=== PATIENT | female | born 1975 | race African-American/Black ===

== ENCOUNTER 2017-03-20 13:32 | Emergency (ER) | payer MEDICAID ==
[~2017-03-20] VITALS: Ht 167.6 cm; Wt 86.0 kg
[2017-03-20] MEDS ORDERED: NORT25CA PO (13:46)
[2017-03-20] MEDS ORDERED: LOSA50TA20 PO (13:46)
[2017-03-20] MEDS ORDERED: LAM1 PO (13:46)
[2017-03-20] MEDS ORDERED: CHLO25TA27 GT (13:46)
[2017-03-20] MEDS ORDERED: METO-539 PO (13:46)
[2017-03-20] MEDS ORDERED: FAMO40TA7 PO (13:46)
[2017-03-20] MEDS ORDERED: ATOR40TA70 PO (13:46)
[2017-03-20] MEDS ORDERED: BACL-141 PO (13:46)
[2017-03-20] MEDS ORDERED: LEVE500T19 PO (13:46)
[2017-03-20] MEDS ORDERED: ONDA4TAB5 PO (13:46)
[2017-03-20] MEDS ORDERED: HYDR-4009 PO (13:46)
[2017-03-20] MEDS ORDERED: ALBU18HF2 IH (13:46)
[2017-03-20] MEDS ORDERED: MAGN400C PO (13:46)
[2017-03-20] MEDS ORDERED: METO10TA3 PO (13:46)
[2017-03-20] MEDS ORDERED: ALPR0.5T PO (13:46)
[2017-03-20] MEDS ORDERED: PHEN100C12 PO (13:46)
[2017-03-20] MEDS ORDERED: NPH,100V SQ (13:46)
[2017-03-20] MEDS ORDERED: SODIUM CHLORIDE 0.9% 1,000 ML IV ONE (14:26)
[2017-03-20] MEDS ORDERED: MIDAZOLAM HCL 2 MG/2 ML VIAL IM ONE (14:30)
[2017-03-20] MEDS ORDERED: LEVETIRACETAM 500MG TABLET PO ONE (14:30)
[2017-03-20] MEDS ORDERED: LEVETIRACETAM 500MG PREMIX 100 ML IV ONE (14:30)
[2017-03-20 15:30] LABS: BASOPHILS % 0.7 % (0.0-2.0); EOSINOPHILS % 2.5 % (0.0-5.0); HEMATOCRIT. 43.3 % (36.0-48.0); LYMPHOCYTES % 33.2 % (20.0-50.0); MEAN CORPUSCULAR HEMOGLOBIN 27.9 pg (28.0-32.0); MEAN CORPUSCULAR VOLUME 86.5 fL (81.0-99.0); MONOCYTES % 7.9 % (2.0-8.0); NEUTROPHILS % 55.7 % (40.0-76.0); PLATELET 367 x1000/uL (130-400); RED CELL DISTRIBUTION WIDTH 13.6 % (11.6-14.6)
[2017-03-20 15:35] LABS: CHLORIDE 101 mEq/L (98-107)
[2017-03-20 15:39] LABS: PROTHROMBIN TIME 10.2 sec (9.4-11.6)
[2017-03-20 15:44] LABS: ETHANOL BLOOD < 10 mg/dL
[2017-03-20 15:49] LABS: CARBAMAZEPINE < 0.5 ug/mL (4-12)
[2017-03-20 15:53] LABS: HCG SCREEN POSITIVE
[2017-03-20 16:48] LABS: *AMPHETAMINES SCREEN URINE NEGATIVE (NEGATIVE); *BARBITURATES SCREEN URINE NEGATIVE (NEGATIVE); *COCAINE SCREEN URINE NEGATIVE (NEGATIVE); CANNABINOID URINE SCREEN NEGATIVE (NEGATIVE); METHADONE URINE SCREEN NEGATIVE (NEGATIVE); PHENCYCLIDINE URINE SCREEN NEGATIVE (NEGATIVE)
[2017-03-20 16:49] LABS: *BENZODIAZEPINES SCREEN URINE PRESUMTIVE POSITIVE (NEGATIVE); OPIATES URINE SCREEN PRESUMTIVE POSITIVE (NEGATIVE)
[2017-03-20] MEDS ORDERED: HYDROCODONE/ACETAMINOPHEN 5/325MG TABLET PO ONE (17:45)
[2017-03-20 18:03] VITALS: BP 145/93
== END 2017-03-20 18:40 | disposition short-term general hospital (02) ==
LOC: ER 13:40
DX: R56.9 Unspecified convulsions (principal); N28.9 Disorder of kidney and ureter, unspecified; E11.9 Type 2 diabetes mellitus without complications; J45.909 Unspecified asthma, uncomplicated; H54.61 Unqualified visual loss, right eye, normal vision left eye; R79.1 Abnormal coagulation profile; I10 Essential (primary) hypertension; Z79.4 Long term (current) use of insulin; Z88.2 Allergy status to sulfonamides; Z88.5 Allergy status to narcotic agent
CPT/HCPCS: 36415; 70450; 72125; 80048; 80156; 80185; 80305; 82962; 84702; 84703; 85025; 85610; 85730; 96365; 96372; 99285; G0482; J1953; J2250; J7030; Z7610